=== PATIENT | female | born 1980 | race Caucasian/White ===

== ENCOUNTER 2017-03-27 15:44 | Emergency (ER) | payer MEDICAID ==
[~2017-03-27] VITALS: Ht 170.2 cm; Wt 63.5 kg
[2017-03-27 20:03] VITALS: BP 123/71
== END 2017-03-27 20:03 | disposition home or self-care (01) ==
LOC: ED 15:44
DX: S63.502A Unspecified sprain of left wrist, initial encounter (principal); M50.30 Other cervical disc degeneration, unspecified cervical region; M41.9 Scoliosis, unspecified; S29.9XXA Unspecified injury of thorax, initial encounter; V89.2XXA Person injured in unspecified motor-vehicle accident, traffic, initial encounter; Y93.89 Activity, other specified; Y99.8 Other external cause status; Y92.89 Other specified places as the place of occurrence of the external cause
CPT/HCPCS: 72072; A4570